=== PATIENT | male | born 1985 | race Caucasian/White ===

== ENCOUNTER 2024-03-15 06:57 | Day surgery (SDC) | payer OTHER, SELFPAY ==
[2024-03-15] VITALS (9 sets, daily range): BP systolic 105–131; BP diastolic 58–76; BMI 19.3
[2024-03-15] MEDS: TYLENOL 1000 MG PO (09:54)
[2024-03-15] MEDS: NORMOSOL-R 1000 IV (09:55)
--- NOTE | 2024-03-15 13:11 | W.IMMPOSTOP ---
Surgical Immed Post Op Note
-
Primary Surgeon: Candice
Assisting: Thiago COUCH
Pre-op Diagnosis: Bilateral inguinal hernias
Post-op Diagnosis: Bilateral incarcerated inguinal hernias
Procedure Performed: Robot assisted laparoscopic repair of bilateral incarcerated inguinal hernias
Anesthesia Type: GETA
Specimen / Cultures: None
Estimated Blood Loss: 5cc
Complications: None immediate
Operative Findings: B/L indirect defects, larger on the right, moderate cord lipoma right side, none on the left; B/L MID XL 3D max
--- NOTE | 2024-03-15 13:11 | OR.RPT ---
Operative Report
Operative Report
Primary Surgeon: Candice
Assisting: Thiago COUCH
Pre-op Diagnosis: Bilateral inguinal hernias
Post-op Diagnosis: Right incarcerated inguinal hernia, left inguinal hernia
Procedure Performed: Robot assisted laparoscopic repair of bilateral incarcerated right inguinal hernia and left inguinal hernia
Anesthesia Type: GETA
Specimen / Cultures: None
Estimated Blood Loss: 5cc
Complications: None immediate
Operative Findings: B/L indirect defects, larger on the right, moderate cord lipoma right side, none on the left; B/L MID XL 3D max
Date of surgery: 03/15/24
Indications:� This 38M developed symptomatic right inguinal hernia. Pn exam a contralateral hernia was identified as well. He asked that we repair both sides today. Robot assisted laparoscopic repair was planned.
Description of procedure:� The patient was taken to the operating room and positioned into supine position. The patient�s abdomen was prepped and draped in standard sterile fashion. A time-out was completed verifying correct patient, procedure,
site, positioning, and implants and special equipment prior to beginning this procedure.� The hernia was manually reduced after induction. A stab incision was made in the left upper quadrant, a Veress needle was inserted and proper position was
confirmed by aspiration and saline drop test. Following this, pneumoperitoneum was created with insufflation of carbon dioxide to 12 mmHg. Then a 8mm robotic trocar was inserted above and to the left of the umbilicus. A laparoscope was inserted and
the area of initial trocar entry and Veress needle placement were both inspected and no injuries were found. Two 8mm trocars were then placed lateral to the rectus sheath under direct visualization.
Both inguinal regions were inspected and the median umbilical ligament, medial umbilical ligament, and lateral umbilical fold were identified. Attention was turned to the right groin. The peritoneum was incised transversely above the defect and a
flap was developed in the caudad direction. Aj�s ligament was identified ultimately dissected to its junction with the iliac vein and the space of Retzius was developed bluntly.� The dissection was continued inferiorly to the iliopubic tract,
with care taken to avoid injury to the femoral branch of the genitofemoral nerve and the lateral femoral cutaneous nerve. The cord structures were parietalized.
The direct space was inspected and a hernia was not identified. The femoral space was inspected a defect was not identified.� The indirect space was inspected and a hernia was identified and reduced by gentle traction along with amodrate sized cord
lipoma.
Attention was turned to the left groin and the above process was repeated. An indirect defect was reduced by gentle traction. The canal was inspected and no discrete cord lipoma was identified though the cord was mildly fatty. The direct and femoral
spaces were inspected, no defects were identified.
Extra large left and right MID 3D max mesh was passed through a trocar. The mesh was placed into the preperitoneal space and moved into position to lay flat and completely cover the direct, indirect, and femoral spaces with overlap at the midline.
The mesh was secured into place using 2-0 vicryl suture to Aj�s ligament medially and laterally. Care was taken to avoid the inferolateral triangles containing the iliac vessels and genital nerves.
The peritoneal flap was closed over the mesh and secured with 2-0 monocryl stratafix suture in similar positions of safety. A 14g angiocath was used to decompress the preperitoneal space revealing good seal and all mesh in good position without
folding or curling. After ensuring adequate hemostasis, the trocars were removed and the pneumoperitoneum allowed to escape. The trocar incisions were closed at the skin level using 4-0 monocryl and topical skin adhesive. All counts were correct and
the patient tolerated the procedure well and was taken to the postanesthesia care unit in stable condition.
The assistance of Thiago COUCH was required due to the complexity of the procedure. During the procedure Amyler KNOCKOUT MAN assisted with retraction, resection, and closure of the wound.
[2024-03-15] MEDS: SUBLIMAZE 25 MCG IV (14:12)
== END 2024-03-15 19:00 | disposition home or self-care (01) ==
LOC: SDS 06:57
PROVIDERS: ATTENDING PHYSICIAN Surgery
DX: K40.30 Unilateral inguinal hernia, with obstruction, without gangrene, not specified as recurrent (principal); K40.90 Unilateral inguinal hernia, without obstruction or gangrene, not specified as recurrent
CPT/HCPCS: 49650; C1781